=== PATIENT | male | born 1940 | race Caucasian/White ===

== ENCOUNTER 2024-12-29 10:29 | Day surgery (SDC) | payer OTHER, SELFPAY ==
[2024-12-29] VITALS (17 sets, daily range): BP systolic 100–115; BP diastolic 46–84; BMI 31.9
[2024-12-29] MEDS: LOW STRENGTH ASPIRIN 324 MG PO (12:00)
[2024-12-29] MEDS: NSS 320 ML IV (12:04)
--- NOTE | 2024-12-29 12:33 | ITS.CL.CATH ---
[employer] - Catheterization
Cardiac Catheterization
Procedure Report:
LEFT HEART CATHETERIZATION
Date of Procedure: December 29, 2024
Referring: Nitin Agustin MD
PROCEDURES:
1. Left heart catheterization, coronary angiogram.
2. Moderate sedation.
INDICATION: Abnormal Stress test.
ACCESS: Right radial artery, 6Fr. sheath, under US guidance.
HEMODYNAMICS : (mmHg)
AO (s/d) : 124/70
LVEDP : 18
No significant gradient across the aortic valve to suggest aortic stenosis.
CORONARY FINDINGS
Dominance: Right
Left Main: Minimal luminal irregularities
LAD: Large-caliber LAD with multiple small caliber diagonal branches as it courses through the anterior interventricular groove and wraps around the apex. 30% ostial LAD stenosis with no pressure dampening. There is moderate to severe proximal LAD
calcification without area of focal stenosis. There is a focal 30% mid LAD lesion. There is a focal 40% mid to distal LAD lesion.
Circumflex: The left circumflex artery is a medium caliber vessel which gives of 1 large arborizing OM branch and a small to medium caliber left posterolateral branch heavily calcified 30% proximal circumflex stenosis. There is a widely patent mid
circumflex stent with no restenosis. The remainder of the circumflex system has mild diffuse atherosclerotic plaque.
RCA: High anterior takeoff requiring AL-1 diagnostic catheter for selective cannulation. Ostial RCA has 20 to 30% stenosis with mild ectasia in the proximal portion. There is 30% proximal to mid RCA stenosis. There is a widely patent stent in the
mid RCA at the crux without significant restenosis. The acute marginal branch becomes the PDA and there are several small posterolateral branches all of which have mild luminal irregularities without focal areas of stenosis.
SEDATION: 27 minutes of procedural sedation was utilized. IV Midazolam and IV Fentanyl were administered. An independent medical transcriber was present to assist with and help manage the patient's level of consciousness and physiologic status.
RADIATION SUMMARY: Fluoro Time (min): 3.5, Dose (mGy): 429.1, DAP (Gy.cm2) : 25.5
Closure Device: There were no immediate intra-procedural complications. The sheath was pulled in the laborer pipeline and a vascular-band applied to the right wrist for radial artery hemostasis using the patent hemostasis technique.
CONCLUSIONS
1. Mild to moderate coronary artery disease with previous stents in the RCA and left circumflex widely patent. No obstructive coronary artery disease. Overall CAD appears stable when compared to prior heart catheterization from 2022.
2. Elevated LVEDP at 18 mmHg.
RECOMMENDATIONS
1. Wean radial band per protocol. Monitor right hand perfusion and for bleeding from the radial site following removal of the vascular-band following trans-radial access.
2. Continue aggressive medical therapy and risk factor modification for secondary CAD prevention.
3. Hydrate with normal saline to mitigate the risk of contrast-induced acute kidney injury.
4. Follow-up with Dr. Agustin
Copy to: Nitin Agustin MD and Prudencio Barth PA-C
Shira Dior MD, [facility], [facility]
[2024-12-29] MEDS: LASIX 20 MG IV (14:40)
== END 2024-12-29 17:00 | disposition home or self-care (01) ==
LOC: CATH 10:29
PROVIDERS: ATTENDING PHYSICIAN Internal Medicine Interventional Cardiology; FAMILY PHYSICIAN Internal Medicine; REFERRING PHYSICIAN Internal Medicine Cardiovascular Disease
DX: I25.10 Atherosclerotic heart disease of native coronary artery without angina pectoris (principal); R94.39 Abnormal result of other cardiovascular function study; Z95.5 Presence of coronary angioplasty implant and graft; I25.2 Old myocardial infarction; K21.9 Gastro-esophageal reflux disease without esophagitis; Z79.01 Long term (current) use of anticoagulants
CPT/HCPCS: 99152; 99153; 93458; C1769; C1894; Q9967